=== PATIENT | female | born 1955 | race Caucasian/White ===

== ENCOUNTER 2019-01-11 08:29 | Emergency (ER) | payer BC ==
[2019-01-11 08:42] VITALS: BP 138/69
[2019-01-11] MEDS ORDERED: predniSONE TAB* 20 MG PO ONE (08:51)
[2019-01-11] MEDS ORDERED: Famotidine TAB* 20 MG PO ONE (08:51)
[2019-01-11] MEDS ORDERED: diPHENhydraMINE PO* 25 MG PO ONE ×2 (08:51→09:19)
--- NOTE | 2019-01-11 08:57 | UC ---
Skin Complaint HPI - HPI Summary HPI Summary: 63-year-old woman comes in with a chief complaint of sudden onset of rash this morning. It is itchy. It started on her left upper arm where she had a Band- Aid. Gradually spread on her legs and arms and trunk. She reported then that she's having some tingling on the right side of her tongue. No difficulty swallowing or breathing. She has been on Plavix for about 2 weeks due to a stroke. No other new medications. No known allergens otherwise. - History of Current Complaint Chief Complaint: UCAllergicReaction Time Seen by Provider: 01/11/19 08:43 Stated Complaint: SKIN COMPLAINT Pain Intensity: 0 - Allergy/Home Medications Allergies/Adverse Reactions: Allergies Allergy/AdvReac Type Severity Reaction Status Date / Time morphine Allergy Hives Verified 01/11/19 08:33 Home Medications: Home Medications Aspirin TAB* [Aspirin 325 MG TAB*] 325 mg PO DAILY 01/11/19 [History Confirmed 01/11/19] Atorvastatin* [Lipitor*] 80 mg PO DAILY 01/11/19 [History Confirmed 01/11/19] Cholecalciferol TAB* [Vitamin D TAB*] 1,000 unit PO DAILY 01/11/19 [History Confirmed 01/11/19] Clopidogrel TAB* [Plavix TAB*] 75 mg PO DAILY 01/11/19 [History Confirmed ] Escitalopram * [Lexapro 10 mg (NF)] 10 mg PO DAILY 01/11/19 [History Confirmed 01/11/19] Lisinopril TAB* [Prinivil TAB*] 5 mg PO DAILY 01/11/19 [History Confirmed ] Multivitamin [Multivitamins] 1 cap PO DAILY 01/11/19 [History Confirmed 01/11/19 ] diphenhydrAMINE HCl [Benadryl LIQUID 12.5 MG/5 ML] 10 ml PO ONCE PRN 01/11/19 [ History Confirmed 01/11/19] PMH/Surg Hx/FS Hx/Imm Hx Previously Healthy: Yes Endocrine History: Dyslipidemia Cardiovascular History: Hypertension Neurological History: CVA - Surgical History Surgical History: Yes Surgery Procedure, Year, and Place: hysterectomy. bladder pulled up. tonsilectomy - Family History Known Family History: Positive: Non-Contributory - Social History Alcohol Use: None Substance Use Type: None Smoking Status (MU): Never Smoked Tobacco Review of Systems All Other Systems Reviewed And Are Negative: Yes Constitutional: Positive: Other - SEE HPI Skin: Positive: Rash Eyes: Positive: Negative ENT: Positive: Other - SEE HPI Respiratory: Positive: Negative Cardiovascular: Positive: Negative Gastrointestinal: Positive: Negative Motor: Positive: Negative Neurovascular: Positive: Negative Musculoskeletal: Positive: Negative Neurological: Positive: Negative Psychological: Positive: Negative Is Patient Immunocompromised?: No Physical Exam Triage Information Reviewed: Yes Appearance: Well-Appearing, No Pain Distress, Well-Nourished Vital Signs: Initial Vital Signs Temp 96.5 F 01/11/19 08:36 Pulse 73 01/11/19 08:36 Resp 16 01/11/19 08:36 BP 138/69 01/11/19 08:36 Pulse Ox 100 01/11/19 08:36 Vital Signs Reviewed: Yes Eye Exam: Normal Eyes: Positive: Conjunctiva Clear ENT: Positive: Pharynx normal - OPEN, Uvula midline. Negative: Muffled voice, Hoarse voice Neck: Positive: Supple Respiratory: Positive: Lungs clear, Normal breath sounds, No respiratory distress Cardiovascular: Positive: RRR Musculoskeletal: Positive: Strength Intact, ROM Intact Neurological: Positive: Alert, Muscle Tone Normal Psychological: Positive: Age Appropriate Behavior Skin: Positive: Other - Patient has scattered erythematous slightly raised rash on her upper arms legs and trunk. No rash seen on her face. Oropharynx is open voice is normal no difficulty swallowing or breathing no respiratory distress. Course/Dx - Course Course Of Treatment: It's unsure the cause of the allergic reaction. The reaction to start at the site of the Band-Aid so that is a possibility. Patient just started 2 weeks ago on Plavix and that's also possible. No difficulty swallowing or breathing or she does feel some tingling in her right tongue. In clinic patient was given prednisone 60 mg by mouth Benadryl 25 mg by mouth and Pepcid 40 mg by mouth. Patient is very taken Benadryl prior to arrival. The plan at this point is as long as she does not get worse and she improves she continue the by mouth medications as needed. If she worsens at all she needs to go the emergency department or call 911. - Diagnoses Provider Diagnosis: Allergic reaction Discharge ED - Sign-Out/Discharge Documenting (check all that apply): Patient Departure All imaging exams completed and their final reports reviewed: No Studies - Discharge Plan Condition: Stable Disposition: HOME Prescriptions: Famotidine TAB* [Pepcid 20 MG TAB*] 20 mg PO BID PRN #8 tab PRN Reason: Allergy Symptoms predniSONE TAB* [Deltasone 20 MG TAB*] 40 mg PO DAILY PRN #8 tab PRN Reason: Allergy Symptoms Patient Education Materials: General Allergic Reaction (ED) Additional Instructions: FOLLOW UP WITH YOUR DOCTOR. GO TO THE EMERGENCY DEPARTMENT IF YOUR CONDITION WORSENS; DIFFICULTY SWALLOWING OR BREATHING, YOU FEEL ILL OR ANY QUESTIONS OR CONCERNS. TAKE BENADRYL 50MG EVERY 6 HOURS NEEDED. TAKE PEPCID 20MG TWICE A DAY NEEDED. TAKE THE PREDNISONE DIRECTED NEEDED. - Billing Disposition and Condition Condition: STABLE Disposition: Home
== END 2019-01-11 09:26 | disposition home or self-care (01) ==
LOC: UCCORT 08:29
DX: T78.40XA Allergy, unspecified, initial encounter (principal); X58.XXXA Exposure to other specified factors, initial encounter; I10 Essential (primary) hypertension; E78.5 Hyperlipidemia, unspecified; Z86.73 Personal history of transient ischemic attack (TIA), and cerebral infarction without residual deficits
CPT/HCPCS: 99203; A9270-GY; G0463; J7512